=== PATIENT | female | born 2000 | race African-American/Black ===

== ENCOUNTER 2021-07-03 08:38 | Emergency (ER) | payer OTHER, SELFPAY ==
--- OUTSIDE RECORDS SUMMARY | 2021-07-03 08:40 | XMS REPORT | Continuity of Care Document ---
:2000 Author Organization [facility] t Address [address] [place] [address] Care Team Providers Name Role Phone Bonifacio CRUZ Primary Care Physician Unavailable Chris ESTEBAN Attending Clinician Unavailable Payers Payer Name Policy Type Policy Number Effective Date Expiration Date Yvonne JAMES [id number] 2016 HEALTH 00:00:00 Problems This patient has no known problems. Allergies, Adverse Reactions, Alerts Allergy Allergy Status Severity Reaction(s) Onset Inactive Treating Comm ents Source Name Type Date Date Clinician NO KNOWN Drug Active [facility]ER[facility] Medications This patient has no known medications. Procedures This patient has no known procedures. Encounters Start End Encounter Admission Attending Care Care Encounter Source Date/Time Date/Time Type Type Clinicians Facility Department ID 2021-07-04 2021-07-04 Outpatient R EULALIA [facility] [id number] Univers 14:30:00 14:30:00 DALILA [id number] kathleen o f [facility] 2021-07-04 2021-07-04 Outpatient R [facility] [id number] Univers 14:00:00 14:00:00 [facility] Results This patient has no known results.
[2021-07-03] MEDS ORDERED: ACETAMINOPHEN 500 MG TAB ONE (09:07)
[2021-07-03 09:14] LABS: Urine Blood 2+ (Negative); Urine Glucose Negative (Negative); Urine Protein 1+ (Negative); Urine Specific Gravity >=1.030 (1.005-1.030)
[2021-07-03 09:20] LABS: Urine Specific Gravity/Preg >1.030 (1.005-1.030)
--- NOTE | 2021-07-03 09:56 | RAD REPORT ---
EXAM DESCRIPTION: US - Transvaginal OB - 07/03/2021 9:40 am CLINICAL HISTORY: VAGINAL BLEEDING COMPARISON: No comparisons FINDINGS: A small slightly irregularly-shaped gestational sac is seen in the fundal portion of the e ndometrial cavity. Gestational sac measurements correspond to a 5 week 1 day age. There does appear t o be a small pole within this gestational sac. heart tones were obtained at 85 BPM. [place] -rump length measurement corresponds to a 6 week 0 day age. Uterus is normal in size. No hematoma or other intrauterine abnormality identifiable. No myometrial m ass. Both ovaries are identified. Normal blood flow seen at Doppler assessment. No ovarian or adnexal abno rmality. No blood or fluid in the cul de sac. IMPRESSION: Small, normally positioned gestational sac in the fundal portion of the endometrial cavi ty. Heart rate was recorded as 85 BPM. This was difficult to obtain but is believed to be rather th an maternal heart rate. Cervix is closed. No intrauterine mass or hematoma seen. No adnexal abnormalities.
[2021-07-03 10:02] LABS: Lymphocytes % 20.7 % (15.3-44.8); MPV 6.9 fL (7.6-11.3); RBC Red Blood Cell Count 4.77 M/uL (3.86-4.86)
[2021-07-03 10:27] LABS: BUN Blood Urea Nitrogen 8 mg/dL (7-18); Bicarbonate 23 mmol/L (21-32); Glucose Level 101 mg/dL (74-106); Potassium 3.7 mmol/L (3.5-5.1); Sodium Level 138 mmol/L (136-145)
[2021-07-03 10:41] LABS: HCG, Quantitative 876 mIU/mL (1-3)
--- NOTE | 2021-07-03 11:10 | EDPHYS ---
Physician Documentation [facility] Name: Shannan Garcia Age: 21 yrs Sex: Female : 2000 Arrival Date: 07/03/2021 Time: 08:41 Bed 19 Private MD: ED Physician Charlene Dominguez HPI: 07/03 08:55 This 21 yrs old Black Female presents to ER via Ambulatory with complaints of Vaginal cp Bleeding, + Preg <12wks. 08:55 The patient presents to the emergency department with vaginal bleeding, with clots. The cp estimated gestational age is 6 weeks. course: care: at a clinic, Ultrasound: the patient has not had an ultrasound. Previous pregnancies: the patient has never been . 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 - Social history:: Smoking status: Patient denies any tobacco usage or history of. ROS: 09:00 : Positive for vaginal bleeding, Negative for urinary symptoms. cp 09:00 Constitutional: Negative for body aches, chills, fever. cp 09:00 Respiratory: Negative for cough, shortness of breath, wheezing. 09:00 Abdomen/GI: Positive for abdominal pain, of the right lower quadrant and left lower quadrant, Negative for vomiting, diarrhea, constipation. 09:00 Back: Negative for radiated pain. 09:00 Neuro: Negative for altered mental status, headache, weakness. 09:00 All other systems are negative. cp Exam: 09:05 Constitutional: The patient appears in no acute distress, alert, awake, comfortable, cp non-toxic, well developed, well nourished. 09:05 Head/Face: Normocephalic, atraumatic. cp 09:05 Eyes: Periorbital structures: appear normal, Conjunctiva: normal, no exudate, no injection, Lids and lashes: appear normal, bilaterally. 09:05 ENT: External ear(s): are unremarkable, Nose: is normal, Mouth: Lips: moist, Oral mucosa: moist. 09:05 Chest/axilla: Inspection: normal. 09:05 Cardiovascular: Rate: tachycardic, Rhythm: regular. 09:05 Respiratory: the patient does not display signs of respiratory distress, Respirations: normal, no use of accessory muscles, no retractions, labored breathing, is not present, Breath sounds: are clear throughout, no decreased breath sounds, no stridor, no wheezing. 09:05 Abdomen/GI: Inspection: abdomen appears normal, Bowel sounds: active, all quadrants, Palpation: soft, in all quadrants, mild abdominal tenderness, in the right lower quadrant and left lower quadrant, rebound tenderness, is not appreciated, voluntary guarding, is not appreciated, involuntary guarding, is not appreciated. 09:05 Back: CVA tenderness, is absent. Vital Signs: 08:48 BP 137 / 81; Pulse 114; Resp 18; Temp 97.7; Pulse Ox 100% on R/A; Weight 88.45 kg; ph Height 4 ft. 11 in. (149.86 cm); Pain 6/10; 11:32 BP 126 / 79; Pulse 100; Resp 18 S; Pulse Ox 100% on R/A; jd3 08:48 Body Mass Index 39.38 (88.45 kg, 149.86 cm) ph MDM: 08:48 Patient medically screened. cp 09:00 Differential diagnosis: STD, ectopic , uti. cp 11:08 Data reviewed: vital signs, nurses notes, lab test result(s), radiologic studies, cp ultrasound. Counseling: I had a detailed discussion with the patient and/or guardian regarding: the historical points, exam findings, and any diagnostic results supporting the discharge/admit diagnosis, lab results, radiology results, the need for outpatient follow up, an OB/Gyne specialist, to return to the emergency department if symptoms worsen or persist or if there are any questions or concerns that arise at home. 07/03 08:55 Order name: Abo/rh Typing; Complete Time: 10:54 07/03 10:55 Interpretation: Reviewed. 07/03 08:55 Order name: Basic Metabolic Panel; Complete Time: 10:54 07/03 08:55 Order name: CBC with Diff; Complete Time: 10:54 07/03 10:54 Interpretation: Normal except: PLT 426; MPV 6.9. cp 07/03 08:55 Order name: Quantitative Hcg; Complete Time: 10:54 cp 07/03 10:55 Interpretation: HCGQ 876; Reviewed. cp 07/03 09:14 Order name: Urine Dipstick-Ancillary; Complete Time: 10:54 EDMS 07/03 09:15 Order name: Urine --Ancillary (enter results); Complete Time: 10:54 bd 07/03 08:55 Order name: IV Saline Lock; Complete Time: 09:59 cp 07/03 08:55 Order name: Labs collected and sent; Complete Time: 09:59 cp 07/03 08:55 Order name: NPO; Complete Time: 09:02 cp 07/03 08:55 Order name: Urine Dipstick-Ancillary (obtain specimen); Complete Time: 09:08 cp 07/03 08:55 Order name: Urine Test (obtain specimen); Complete Time: 09:08 cp 07/03 08:55 Order name: US Transvaginal Ob; Complete Time: 10:54 cp 07/03 10:56 Interpretation: Report reviewed. cp Administered Medications: 09:08 Drug: Tylenol 1000 mg Route: PO; jd3 10:00 Follow up: Response: No adverse reaction jd3 Disposition: 11:15 Chart complete. cp 07/04 04:37 Co-signature as Attending Physician, Charlene Dominguez MD I agree with the assessment and sp3 plan of care. Disposition Summary: 07/03/21 11:10 Discharge Ordered Location: Home cp Problem: new cp Symptoms: have improved cp Condition: Stable cp Diagnosis - Threatened cp Followup: cp - With: Private Physician - When: 1 week - Reason: Recheck today's complaints Discharge Instructions: - Discharge Summary Sheet cp - Care cp - Threatened Miscarriage cp - Vaginal Bleeding During , First Trimester cp Forms: - Medication Reconciliation Form cp - Thank You Letter cp - Antibiotic Education cp - Prescription Opioid Use cp Prescriptions: - 147-iron gluc-folic 13 mg iron- 1 mg Oral tablet - take 1 tablet by ORAL route once daily; 60 tablet; Refills: 0, Product cp Selection Permitted Signatures: Dispatcher [facility] Gloria Boyce RN RN ph Edenilson Gill PA PA Carloz Mariscal RN RN jd3 Charlene Dominguez, MD MD sp3
--- NOTE | 2021-07-03 11:10 | ER ---
Nurse's Notes [facility] Name: Shannan Garcia Age: 21 yrs Sex: Female : 2000 Arrival Date: 07/03/2021 Time: 08:41 Bed 19 Private MD: Diagnosis: Threatened Presentation: 07/03 08:48 Chief complaint: Patient states: Approx 5 weeks , began having spotting this morning which has progressively gotten heavier, small clots reported. Also reports lower abdominal cramping. Coronavirus screen: Vaccine status: Patient reports receiving the 2nd dose of the covid vaccine. Ebola Screen: No symptoms or risks identified at this time. Initial Sepsis Screen: Does the patient meet any 2 criteria? No. Patient's initial sepsis screen is negative. Does the patient have a suspected source of infection? No. Patient's initial sepsis screen is negative. Risk Assessment: Do you want to hurt yourself or someone else? Patient reports no desire to harm self or others. Onset of symptoms was July 03, 2021. 08:48 Method Of Arrival: Ambulatory 08:48 Acuity: ROMEO 3 ph TIN FLIPPER: 08:52 LMP 05/13/2021 ph 08:55 1, Full Term 0, 0, Living 0, LMP 05/17/2021 cp Historical: - Allergies: 08:52 No Known Allergies; ph - Home Meds: 08:52 None [Active]; ph - PMHx: 08:52 None; ph - PSHx: 08:52 None; ph - Immunization history:: Adult Immunizations up to date. - Social history:: Smoking status: Patient denies any tobacco usage or history of. Screenin:48 Abuse screen: Denies threats or abuse. Nutritional screening: No deficits noted. jd3 Tuberculosis screening: No symptoms or risk factors identified. Fall Risk Ambulatory Aid- None/Bed Rest/Nurse Assist (0 pts). Gait- Normal/Bed Rest/Wheelchair (0 pts) Mental Status- Oriented to own ability (0 pts). Total Zavala Fall Scale indicates No Risk (0-24 pts). Assessment: 08:46 General: Appears in no apparent distress. comfortable, Behavior is calm, cooperative, jd3 appropriate for age. Pain: Complains of pain in abdomen Quality of pain is described as pressure. Neuro: Level of Consciousness is awake, alert, obeys commands, Oriented to person, place, time, situation. Cardiovascular: Denies chest pain, Capillary refill < 3 seconds Patient's skin is warm and dry. Respiratory: Airway is patent Respiratory effort is even, unlabored, Respiratory pattern is regular, symmetrical, Denies cough, shortness of breath. GI: No signs and/or symptoms were reported involving the gastrointestinal system. : Reports vaginal bleeding that is spotty. EENT: No signs and/or symptoms were reported regarding the EENT system. Derm: Skin is intact, Skin is dry, Skin is normal, Skin temperature is warm. Musculoskeletal: Circulation, motion, and sensation intact. Range of motion: intact in all extremities. 09:58 Reassessment: Patient appears in no apparent distress at this time. No changes from jd3 previously documented assessment. Patient and/or family updated on plan of care and expected duration. Pain level reassessed. Patient is alert, oriented x 3, equal unlabored respirations, skin warm/dry/pink. 11:06 Reassessment: Patient appears in no apparent distress at this time. No changes from jd3 previously documented assessment. Patient and/or family updated on plan of care and expected duration. Pain level reassessed. Patient is alert, oriented x 3, equal unlabored respirations, skin warm/dry/pink. 11:32 Reassessment: Patient appears in no apparent distress at this time. Patient and/or jd3 family updated on plan of care and expected duration. Pain level reassessed. Patient is alert, oriented x 3, equal unlabored respirations, skin warm/dry/pink. Vital Signs: 08:48 BP 137 / 81; Pulse 114; Resp 18; Temp 97.7; Pulse Ox 100% on R/A; Weight 88.45 kg; ph Height 4 ft. 11 in. (149.86 cm); Pain 6/10; 11:32 BP 126 / 79; Pulse 100; Resp 18 S; Pulse Ox 100% on R/A; jd3 08:48 Body Mass Index 39.38 (88.45 kg, 149.86 cm) ph ED Course: 08:41 Patient arrived in ED. ds1 08:46 Edenilson Gill PA is PHCP. cp 08:46 Charlene Dominguez MD is Attending Physician. cp 08:46 Mejia, Carloz, RN is Primary Nurse. jd3 08:48 Patient has correct armband on for positive identification. Bed in low position. Call jd3 light in reach. Side rails up X 1. Adult w/ patient. Pulse ox on. NIBP on. 08:52 Triage completed. ph 08:52 Arm band placed on Patient placed in an exam room, on a stretcher. ph 09:12 Diet: Patient is NPO. mh5 09:13 Urine collected: clean catch specimen. 5 09:41 US Transvaginal Ob In Process Unspecified. EDMS 09:58 Inserted saline lock: 22 gauge in right antecubital area, using aseptic technique. jd3 Blood collected. 11:33 No provider procedures requiring assistance completed. IV discontinued, intact, jd3 bleeding controlled, No redness/swelling at site. Pressure dressing applied. Administered Medications: 09:08 Drug: Tylenol 1000 mg Route: PO; jd3 10:00 Follow up: Response: No adverse reaction jd3 Outcome: 11:10 Discharge ordered by MD. kit 11:33 Discharged to home ambulatory, with family. jd3 11:33 Condition: stable 11:33 Discharge instructions given to patient, family, Instructed on discharge instructions, follow up and referral plans. medication usage, Demonstrated understanding of instructions, follow-up care, medications, Prescriptions given X 1. 11:33 Patient left the ED. jd3 Signatures: Dispatcher [employer] [facility] Betsy Zambrano ds1 Gloria Gale, RN RN Edenilson Faria PA PA cp Martinez, Maria [facility] Carloz Mejia, RN RN j
[2021-07-03 11:42] VITALS: TEMP 97.7; O2SAT 100
[2021-07-03 11:44] VITALS: BP 126/79
== END 2021-07-03 11:33 | disposition home or self-care (01) ==
LOC: ER 08:38
DX: O20.0 Threatened abortion (principal); Z3A.01 Less than 8 weeks gestation of pregnancy
CPT/HCPCS: 36415; 76817; 80048; 81003; 81025; 84702; 85025; 86900; 86901; 99284

== ENCOUNTER 2021-12-10 10:49 | Emergency (ER) | payer OTHER ==
[2021-12-10] MEDS ORDERED: dexAMETHasone 10 MG/ML VIAL ONE ×2 (11:13→11:16)
--- NOTE | 2021-12-10 12:12 | ER ---
Nurse's Notes [facility] Name: Shannan Garcia Age: 21 yrs Sex: Female : 2000 Arrival Date: 12/10/2021 Time: 10:51 Bed DIS1 Private MD: Diagnosis: Streptococcal pharyngitis Presentation: 12/10 11:03 Chief complaint: Patient states: woke up with a sore throat and pain this morning. iw Coronavirus screen: Client presents with at least one sign or symptom that may indicate coronavirus-19. Ebola Screen: Patient negative for fever greater than or equal to 101.5 degrees Fahrenheit, and additional compatible Ebola Virus Disease symptoms Patient denies exposure to infectious person. Patient denies travel to an Ebola-affected area in the 21 days before illness onset. No symptoms or risks identified at this time. Initial Sepsis Screen: Does the patient meet any 2 criteria? No. Patient's initial sepsis screen is negative. Does the patient have a suspected source of infection? No. Patient's initial sepsis screen is negative. Risk Assessment: Do you want to hurt yourself or someone else? Patient reports no desire to harm self or others. Onset of symptoms was December 10, 2021. 11:03 Method Of Arrival: Ambulatory iw 11:03 Acuity: ROMEO 4 iw Historical: - Allergies: 11:04 No Known Allergies; iw - Home Meds: 11:04 None [Active]; iw - PMHx: 11:04 None; iw - Immunization history:: Adult Immunizations unknown. - Social history:: Smoking status: unknown. Screenin:37 Abuse screen: Denies threats or abuse. Denies injuries from another. Nutritional iw screening: No deficits noted. Tuberculosis screening: No symptoms or risk factors identified. Fall Risk None identified. Assessment: 11:36 General: Appears in no apparent distress. Behavior is calm, cooperative. Pain: iw Complains of pain in throat Neuro: Level of Consciousness is awake, alert, obeys commands, Oriented to person, place, time, situation, Moves all extremities. Full function Gait is. Respiratory: Airway is patent Respiratory effort is even, unlabored, Breath sounds are clear bilaterally. EENT: Throat has enlarged tonsils on left with gag reflex present. Vital Signs: 11:03 BP 130 / 77; Pulse 92; Resp 16; Temp 98.5; Pulse Ox 100% on R/A; iw ED Course: 10:51 Patient arrived in ED. as 10:54 [facility] amaury 10:54 Zelalem Ponce MD is Attending Physician. [facility] 11:03 Catherine Burkett, RN is Primary Nurse. iw 11:04 Triage completed. iw 11:04 Arm band placed on. iw 11:10 COVID swab sent to lab. Flu and/or RSV swab sent to lab. Strep swab sent to lab. em1 12:03 Patient has correct armband on for positive identification. iw 12:03 No provider procedures requiring assistance completed. Patient did not have IV access iw during this emergency room visit. Administered Medications: 11:14 Drug: Decadron (dexamethasone) 10 mg Route: IM; Site: left deltoid; iw 11:30 Follow up: Response: No adverse reaction iw Medication: 11:37 VIS not applicable for this client. iw Outcome: 12:11 Discharge ordered by . [facility] 12:20 Discharged to home ambulatory. iw 12:20 Condition: good 12:20 Discharge instructions given to patient, Instructed on discharge instructions, follow up and referral plans. medication usage, Demonstrated understanding of instructions, follow-up care, medications, Prescriptions given X 1. 12:21 Patient left the ED. iw Signatures: Bernard Hunt PA PA jmm Martinez, Amelia as Williams, Irene, RN RN Juan Carlos Johnson 1
--- NOTE | 2021-12-10 12:12 | EDPHYS ---
Physician Documentation [facility] Name: Shannan Garcia Age: 21 yrs Sex: Female : 2000 Arrival Date: 12/10/2021 Time: 10:51 Bed DIS1 Private MD: ED Physician Zelalem Ponce HPI: 12/10 12:09 This 21 yrs old Black Female presents to ER via Ambulatory with complaints of Sore jmm Throat, Swollen Glands. 12:09 The patient presents with sore throat. Onset: The symptoms/episode began/occurred jmm gradually. Modifying factors: The symptoms are alleviated by nothing, the symptoms are aggravated by nothing. Associated signs and symptoms: Pertinent positives: fever. This is a 21 year old female with no chronic medical conditions that presents to the ED with complaints of sore throat. Patient states having similar episode in the past with strep diagnosis. . Historical: - Allergies: 11:04 No Known Allergies; iw - Home Meds: 11:04 None [Active]; iw - PMHx: 11:04 None; iw - Immunization history:: Adult Immunizations unknown. - Social history:: Smoking status: unknown. ROS: 12:09 Constitutional: Positive for body aches, chills. jmm 12:09 ENT: Positive for sore throat. 12:09 All other systems are negative. 12:40 Constitutional: f kdr Exam: 12:09 Constitutional: This is a well developed, well nourished patient who is awake, alert, jmm and in no acute distress. Head/Face: atraumatic. Eyes: EOMI, no conjunctival erythema appreciated 12:09 Chest/axilla: Normal chest wall appearance and motion. Cardiovascular: Regular rate and rhythm. No edema appreciated Respiratory: Normal respirations, no respiratory distress appreciated Abdomen/GI: Non distended Back: Normal ROM Skin: General appearance color normal MS/ Extremity: Moves all extremities, no obvious deformities appreciated, no edema noted to the lower extremities Neuro: Awake and alert Psych: Behavior is normal, Mood is normal, Patient is cooperative and pleasant 12:09 ENT: Posterior pharynx: erythema, that is moderate. Vital Signs: 11:03 BP 130 / 77; Pulse 92; Resp 16; Temp 98.5; Pulse Ox 100% on R/A; iw MDM: 11:02 Patient medically screened. jmm 12:10 Data reviewed: vital signs, nurses notes. Counseling: I had a detailed discussion with [facility] the patient and/or guardian regarding: the historical points, exam findings, and any diagnostic results supporting the discharge/admit diagnosis, lab results, the need for outpatient follow up, to return to the emergency department if symptoms worsen or persist or if there are any questions or concerns that arise at home. ED course: PE is not consistent with ludwigs or river boat captain. Patient advised to follow up with pcp and otherwise given strict return precautions. patient understood and agrees with the plan of care. . 12/10 10:54 Order name: SARS-COV-2 RT PCR (Document "Date of Onset" if Symptomatic); Complete Time: [facility] 12:12/10 10:55 Order name: Strep; Complete Time: 12:09 [facility] 12/10 10:55 Order name: Influenza Screen (a \\T\\ B); Complete Time: 12:09 [facility] Administered Medications: 11:14 Drug: Decadron (dexamethasone) 10 mg Route: IM; Site: left deltoid; 11:30 Follow up: Response: No adverse reaction Disposition: 12:40 Co-signature as Attending Physician, Zelalem Ponce MD I agree with the assessment and kdr plan of care. Disposition Summary: 12/10/21 12:11 Discharge Ordered Location: Home [facility] Condition: Stable [facility] Diagnosis - Streptococcal pharyngitis [facility] Followup: [facility] - With: Private Physician - When: 2 - 3 days - Reason: Recheck today's complaints, Continuance of care, Re-evaluation by your physician Discharge Instructions: - Discharge Summary Sheet [facility] - Strep Throat, Adult [facility] Forms: - Medication Reconciliation Form [facility] - Thank You Letter [facility] - Antibiotic Education [facility] - Prescription Opioid Use [facility] - Work release form Prescriptions: - Amoxicillin 875 mg Oral Tablet - take 1 tablet by ORAL route every 12 hours for 10 days; 20 tablet; Refills: 0, [facility] Product Selection Permitted Signatures: Dispatcher [employer] Zelalem Young MD MD kdr Mickail, Joel, PA PA jmm Williams, Irene, BRIANDA RN iw
[2021-12-10 12:58] VITALS: BP 130/77; TEMP 98.5; O2SAT 100
== END 2021-12-10 12:21 | disposition home or self-care (01) ==
LOC: ER 10:49
DX: J02.0 Streptococcal pharyngitis (principal); Z20.822 Contact with and (suspected) exposure to COVID-19
CPT/HCPCS: 87081; 87804; 96372; 99283; J1100; U0003

== ENCOUNTER 2023-04-06 08:14 | Emergency (ER) | payer OTHER ==
--- OUTSIDE RECORDS SUMMARY | 2023-04-06 08:17 | XMS REPORT | Continuity of Care Document ---
:2000 Author Organization [facility] t Address [address] [facility] [address] [place] [address] Care Team Providers Name Role Phone KRISTI ESTEBAN Primary Care Physician Unavailable KRISTI ESTEBAN Attending Clinician Unavailable JAIMIE MEDRANO Attending Clinician Unavailable Trimester, [facility] Res-1st Attending Clinician Unavailable Jaimie Medrano MD Attending Clinician [facility] [phone] RUI CHRISTIE Attending Clinician Unavailable Rui Christie MD Attending [facility]ician [facility] Unavailable Aminta SANFORD Attending Clinician Unavailable Aminta Espitia Attending Clinician Doctor Unassigned, [place] Attending Clinician Unavailable Aminta SANFORD Admitting Clinician Unavailable Payers Payer Name Policy Type Policy Number Effective Date Expiration Date S ource [facility] [place] ST[facility] [id number] 2021 00:00:00 [place] [id number] 2021 00:00:00 MEDICAID PEND[place] PENDING 2021 00:00:00 [place] [facility] [id number] 2016 HEALTH 00:00:00 Problems Condition Condition Condition Status Onset Resolution Last Treating Co mments Source Name Details Category Date Date Treatment Clinician Date Supervisio Supervisio Disease Active U nivers n of n of 1-26 it[place] of [place] [facility] Vaginal Vaginal Disease Active Univers bleeding bleeding 1-26 ity of during during 00:00: [place] 00 [facility] Obesity in Obesity in Disease Active U nivers 6-05 ity of 00:00: [address] Allergies, Adverse Reactions, Alerts Allergy Allergy Status Severity Reaction(s) Onset Inactive Treating Comm ents Source Name Type Date Date Clinician NO KNOWN Drug Active Univers ALLERGIE Class ity of S [facility] Social History Social Habit Start Date Stop Date Quantity Comments Source ASSERTION 2021-05-30 University of 00:00:00 [facility] Exposure to Not sure [facility] SARS-CoV-2 [facility] (event) [place] Alcohol intake 2021-07-26 2021-07-26 Current University of 00:00:00 00:00:00 non-drinker of [facility] alcohol (finding) [place] Tobacco use and 2017-11-18 2017-11-18 Never used Universit y of exposure 00:00:00 00:00:00 [facility] Tobacco Comment 2017-11-18 2017-11-18 no longer smokes Uni versity of 00:00:00 00:00:00 [facility] History of 2015 2016-10-07 Cigarette Smoker Universi ty of tobacco use 00:00:00 00:00:00 [facility] Sex Assigned At [birth year] Universit y of 00:00:00 00:00:00 [facility] Smoking Status Start Date Stop Date Source Former smoker 2017-11-18 00:00:00 2017-11-18 00:00:00 Universi ty of [facility] Medications Ordered Filled Start Stop Current Ordering Indication Dosage Frequency Signature Comments Components Source Medication Medication Date Date Medication? Clinician (SIG) Name Name metroNIDAZO Yes [id number] 500mg Take 1 Univers LE 500 mg 2-08 tablet by ity o f tablet 00:00: mouth 2 [place] 00 (two) Medical times Branch daily. Yes Take by Univer s vit/iron - mouth. ity of fum/folic 06:58: [place] 02 Medical ( 1 Branch + 1 ORAL) Procedures This patient has no known procedures. Encounters Start End Encounter Admission Attending Care Care Encounter Source Date/Time Date/Time Type Type Clinicians Facility Department ID 2023-01-13 2023-01-13 Outpatient [facility] [id number] 10:54:13 10:54:13 [id number] Nathalia Paul 2023-01-08 2023-01-08 Outpatient [facility] [id number] 14:40:14 14:40:14 [id number] Nathalia [place] 2022-12-23 2022-12-23 Outpatient R AKINSIPE, [facility] [id number] Univers 14:15:00 14:15:00 KRISTI ity o nathalia [facility] 2021-08-01 2021-08-01 Outpatient R AKINSIPE, [facility] [id number] Univers 13:00:00 13:00:00 KRISTI ity o nathalia [facility] 2021-08-01 2021-08-01 Outpatient R AKINSIPE, [facility] [id number] Univers 13:00:00 13:00:00 KRISTI ity o [facility] 2021-08-01 2021-08-01 Outpatient R AKINSIPE, [facility] [id number] Univers 13:00:00 13:00:00 KRISTI wang o [facility] 2021-07-26 2021-07-26 Outpatient R MEDRANO, [facility] [id number] Univers 11:00:00 16:42:44 JAIMIE chinolilia [facility] 2021-07-26 2021-07-26 Routine Trimester, [facility] Res-1st UNIVERSIT [id number] Univers 11:00:00 16:42:44 Jaimie Medrano [facility] [id number] ity of Visit CLINICS [id number] Bhargavike bui [id number] [address] 2021-07-26 2021-07-26 Outpatient R MEDRANO, [facility] [id number] Univers 11:00:00 16:42:44 JAIMIE chinolilia [facility] 2021-07-17 2021-07-17 Telephone Margarita, [facility] [id number] Univers 00:00:00 00:00:00 Kristi C [employer] HEL[employer] [id number] ity of REGIONAL [id number] Bhargav as MATERNAL [phone] [facility] & CHILD [address] [place] [address] 2021-07-12 2021-07-12 Outpatient R CARTER [facility] [id number] Univers 09:30:00 10:03:31 RUI [facility] 2021-07-12 2021-07-12 Routine Trimester, [facility] Res-1st UNIVERSIT [id number] Univers 09:30:00 10:03:31 ChristieRui [facility] [id number] ity of Visit CLINICS [id number] [id number] [address] 2021-07-12 2021-07-12 Outpatient R CARTER [facility] [id number] Univers 09:30:00 10:03:31 [facility] 2021-07-10 2021-07-10 Telephone [facility] [id number] Univers 00:00:00 00:00:00 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 [id number] Univers 10:45:00 10:55:01 Visit Kristi Esteban [employer] [id number] 10 ity of REGIONAL [id number] Bhargav as MATERNAL [id number] [facility] & [address] 2021-07-09 2021-07-09 [facility] [id number] Univers 10:45:00 10:55:01 KRISTI wang o f [facility] 2021-07-09 2021-07-09 [facility] [id number] Univers 10:45:00 10:45:00 KRISTI wang o f [facility] 2021-07-09 2021-07-09 Telephone [facility] [id number] Univers 00:00:00 00:00:00 Kristi Perez [employer] 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 [id number] ity [facility] [id number] Bhargav as MATERNAL [id number] [facility] & [address] 2021-07-07 2021-07-07 Emergency X JUVENAL, K [facility] ERT [id number] Univers 16:39:00 18:58:00 ity [facility] 2021-07-07 2021-07-07 Emergency X JUVENAL, K [facility] ERT [id number] Univers 16:39:00 18:58:00 ity [facility] 2021-07-07 2021-07-07 Emergency Juvenal [facility] [id number] Univers 16:39:00 18:58:00 [facility] [id number] i ty [facility] [id number] [facility] [id number] [address] 2021-07-07 2021-07-07 Telephone [facility] [id number] Univers 00:00:00 00:00:00 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 [id number] ity [facility] [id number] Bhargav as MATERNAL [id number] [facility] & CHILD [address] [place] [address] 2021-07-06 2021-07-06 Outpatient R MARGARITA, [facility] [id number] Univers 10:30:00 10:41:04 KRISTI wang o [facility] 2021-07-06 2021-07-06 Outpatient R MARGARITA, [facility] [id number] Univers 10:30:00 10:41:04 KRISTI wang o f [facility] 2021-07-06 2021-07-06 Outpatient R MARGARITA, [facility] [id number] Univers 10:30:00 10:41:04 KRISTI maganay o f [facility] 2021-07-06 2021-07-06 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 [id number] Univers 10:30:00 10:41:04 Visit Kristi Esteban [employer] HEL[employer] [id number]. 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 [id number] ity of Visit REGIONAL [id number] Bhargav as MATERNAL [id number] [facility] & [address] 2021-07-04 2021-07-04 Outpatient R AKINSIPE, [facility] [id number] Univers 14:00:00 14:49:33 KRISTI ity o f [facility] 2021-07-04 2021-07-04 Outpatient R AKINSIPE, [facility] [id number] Univers 14:00:00 14:49:33 KRISTI ity o f [facility] 2021-07-04 2021-07-04 Outpatient R AKINSIPE, [facility] [id number] Univers 14:00:00 14:49:33 KRISTI ity o f [facility] 2021-07-04 2021-07-04 Outpatient R AKINSIPE, [facility] [id number] Univers 14:00:00 14:00:00 KRISTI ity o [facility] 2021-07-04 2021-07-04 Jennifer VANEGAS [id number] Univers 00:00:00 00:00:00 Only Unassigned, GORAN [id number] ity of [place] [facility] [id number] Bhargav as [phone] [facility] [address] Branch Results This patient has no known results.
[2023-04-06] MEDS ORDERED: ONDANSETRON 4 MG/2 ML VIAL ONE (09:10)
[2023-04-06] MEDS ORDERED: NA CHLORIDE 0.9% 1,000 ML ONE (09:10)
[2023-04-06 09:20] LABS: Absolute Lymphocytes (CBC) 1.3 K/uL (0.7-4.9); Hematocrit 39.7 % (36.0-45.0); MPV 7.3 fL (7.6-11.3); Platelets 342 thou/uL (152-406); RBC Red Blood Cell Count 4.56 M/uL (3.86-4.86)
[2023-04-06 09:34] LABS: Albumin 3.8 g/dL (3.4-5.0); Bilirubin Total 0.2 mg/dL (0.2-1.0); Potassium 3.8 mEq/L (3.5-5.1); Protein, Total 8.5 g/dL (6.4-8.2)
[2023-04-06 09:39] LABS: Specific Gravity 1.022 (1.005-1.030)
[2023-04-06 09:41] LABS: Specific Gravity 1.022 (1.005-1.030); Urine Bacteria None Seen /HPF (<20); Urine Bilirubin NEGATIVE (Negative); Urine Blood 1+ (Negative); Urine Clarity Clear (Clear); Urine Color Light-Yellow (Yellow); Urine Glucose NEGATIVE (Negative); Urine Mucus Slight /HPF (None Seen); Urine Protein NEGATIVE (Negative); Urine Urobilinogen Normal (Normal); Urine pH 7.5 (5.0-7.0)
--- NOTE | 2023-04-06 12:25 | ER ---
Nurse's Notes [facility] Name: Shannan Garcia Age: 23 yrs Sex: Female : 2000 Arrival Date: 04/06/2023 Time: 08:14 Bed 2 Private MD: Diagnosis: Lower abdominal pain, unspecified Presentation: 04/06 08:30 Chief complaint: Lower abdominal pain and nausea x 2 hours. Coronavirus screen: At this hb time, the client does not indicate any symptoms associated with coronavirus-19. Ebola Screen: No symptoms or risks identified at this time. Initial Sepsis Screen: Does the patient meet any 2 criteria? No. Patient's initial sepsis screen is negative. Does the patient have a suspected source of infection? No. Patient's initial sepsis screen is negative. Risk Assessment: Do you want to hurt yourself or someone else? Patient reports no desire to harm self or others. Onset of symptoms was April 06, 2023. 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 - Social history:: Smoking status: Patient denies any tobacco usage or history of. Screenin:18 [facility] ED Fall Risk Assessment (Adult) History of falling in the last 3 months, aa5 including since admission No falls in past 3 months (0 pts) Confusion or Disorientation No (0 pts) Intoxicated or Sedated No (0 pts) Impaired Gait No (0 pts) Mobility Assist Device Used No (0 pt) Altered Elimination No (0 pt) Score/Fall Risk Level 0 - 2 = Low Risk Oriented to surroundings, Maintained a safe environment, Educated pt \\T\\ family on fall prevention, incl call for assistance when getting out of bed. Abuse screen: Denies threats or abuse. Nutritional screening: No deficits noted. Tuberculosis screening: No symptoms or risk factors identified. Assessment: 09:05 General: Appears comfortable, Behavior is calm, cooperative. Pain: Complains of pain in aa5 right lower quadrant and left lower quadrant Pain currently is 7 out of 10 on a pain scale. Quality of pain is described as crampy, Pain began 2 hours ago. Is continuous. Neuro: Level of Consciousness is awake, alert, obeys commands, Oriented to person, place, time, situation. Cardiovascular: Heart tones S1 S2 present Rhythm is regular. Respiratory: Airway is patent Respiratory effort is even, unlabored, Respiratory pattern is regular, symmetrical. GI: Abdomen is round non-distended, Bowel sounds present X 4 quads. Abd is soft and non tender X 4 quads. Reports lower abdominal pain, nausea, Patient currently denies diarrhea, vomiting. : No signs and/or symptoms were reported regarding the genitourinary system. Denies burning with urination, inability to void. EENT: No signs and/or symptoms were reported regarding the EENT system. Derm: Skin is dry, Skin is normal, Skin temperature is warm. Musculoskeletal: Range of motion: intact in all extremities. 09:24 Reassessment: Pt now ambulatory to restroom . aa5 09:30 Reassessment: Urine sent to lab . aa5 10:20 Reassessment: Patient and/or family updated on plan of care and expected duration. Pain rs5 level reassessed. Patient is alert, oriented x 3, equal unlabored respirations, skin warm/dry/pink. Patient denies pain at this time. Patient states feeling better. 11:15 Reassessment: No changes from previously documented assessment. rs5 12:00 GI: Abdomen is round non-distended, Bowel sounds present X 4 quads. Abd is soft and non rs5 tender X 4 quads. Patient currently denies abdominal pain, nausea, vomiting. 12:00 Reassessment: Pt states "I feel better now and I want to leave", provider notified. rs5 Vital Signs: 08:30 Pulse 96; Resp 16; Temp 98.5(O); Pulse Ox 99% on R/A; Weight 79.83 kg; Height 4 ft. 11 hb in. ; Pain 7/10; 09:12 BP 118 / 86; Pulse 79; Resp 16 S; Pulse Ox 100% on R/A; aa5 10:20 BP 120 / 81; Pulse 74; Resp 17; Pulse Ox 99% on R/A; rs5 11:40 BP 125 / 78; Pulse 77; Resp 18; Temp 98.4(O); Pulse Ox 99% on R/A; rs5 08:30 Body Mass Index 35.55 (79.83 kg, 149.86 cm) hb 08:30 Pain Scale: Adult hb ED Course: 08:18 Patient arrived in ED. mg5 08:19 Sapphire Moctezuma [facility] sb4 08:19 Rudolph Blake MD is Attending Physician. sb4 08:31 Triage completed. hb 08:37 Blossom Regalado, RN is Primary Nurse. aa5 09:05 Patient has correct armband on for positive identification. Bed in low position. Call aa5 light in reach. Side rails up X 1. Adult w/ patient. Pulse ox on. NIBP on. 09:11 Initial lab(s) drawn, by me, sent to lab. Inserted saline lock: 22 gauge in right aa5 wrist, using aseptic technique. Blood collected. 10:03 CT Abd/Pelvis - IV Contrast Only In Process Unspecified. EDMS 10:49 Inserted saline lock: 20 gauge in left forearm, using aseptic technique. ,using aseptic nj1 technique. Ultrasound guided. Catheter tip well visualized within vasculature during placement. 12:22 No provider procedures requiring assistance completed. IV discontinued, intact, rs5 bleeding controlled, No redness/swelling at site. Pressure dressing applied. Administered Medications: 09:12 Drug: NS 0.9% IV 1000 ml IV at 1 bolus Per protocol; 1000 mL bolus Route: IV; Rate: 1 aa5 bolus; Site: right wrist; 09:30 Follow up: Response: No adverse reaction rs5 09:12 Drug: Ondansetron IVP 4 mg IVP once; over 2 minutes Route: IVP; Site: right wrist; aa5 09:32 Follow up: Response: No adverse reaction; Nausea is decreased rs5 Medication: 11:51 VIS not applicable for this client. aa5 Outcome: 12:22 Discharged to home ambulatory, with family, rs5 12:22 Condition: stable 12:22 Discharge instructions given to patient, family, 12:24 Discharge ordered by MD. sb4 12:34 Patient left the ED. rs5 Signatures: Dispatcher [employer] EDAR Blossom Regalado RN RN aa5 Nallely Franklin RN RN Sapphire Moctezuma PA-C PA-C sb4 Garcia Coleman RN RN rs5 Alena Graham RN RN nj1 Sayra Spaulding mg5 Corrections: (The following items were deleted from the chart) 08:32 08:30 Pulse 96bpm; Resp 16bpm; Pulse Ox 99% RA; Pain 12/16, Adult; hb hb 13:08 12:30 Response: No adverse reaction; Nausea is decreased rs5 rs5
--- NOTE | 2023-04-06 12:25 | EDPHYS ---
Physician Documentation [facility] Name: Shannan Garcia Age: 23 yrs Sex: Female : 2000 Arrival Date: 04/06/2023 Time: 08:14 Bed 2 Private MD: ED Physician Rudolph Blake HPI: 04/06 08:35 This 23 yrs old Black Female presents to ER via Ambulatory with complaints of Abdominal sb4 Pain. 08:35 The patient presents with abdominal pain in the lower abdomen. Onset: The sb4 symptoms/episode began/occurred this morning. The symptoms radiate to back. Associated signs and symptoms: Pertinent positives: nausea. The symptoms are described as constant, crampy. Modifying factors: The symptoms are alleviated by nothing, the symptoms are aggravated by nothing. Severity of pain: in the emergency department the pain is unchanged is a 7 / 10. The patient has not experienced similar symptoms in the past. The patient has not recently seen a physician. period is late, no vag bleeding, no urinary symptoms. 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 - Social history:: Smoking status: Patient denies any tobacco usage or history of. ROS: 08:35 Constitutional: Negative for fever, chills, and weight loss, sb4 08:35 Abdomen/GI: Positive for abdominal pain, nausea, 08:35 : Positive for missed period, 08:35 All other systems are negative, Exam: 08:35 Constitutional: This is a well developed, well nourished patient who is awake, alert, sb4 and in no acute distress. Head/Face: Normocephalic, atraumatic. Eyes: Extra-ocular motions intact. Periorbital areas with no swelling, redness, or edema. ENT: Mucous membranes moist. Cardiovascular: Regular rate and rhythm with a normal S1 and S2. Respiratory: Lungs have equal breath sounds bilaterally, clear to auscultation and percussion. No rales, rhonchi or wheezes noted. No increased work of breathing, no retractions or nasal flaring. Abdomen/GI: Soft, non-tender, no distension. Skin: Warm, dry with normal turgor. Normal color with no rashes, no lesions, and no evidence of cellulitis. MS/ Extremity: Pulses equal, no cyanosis. Neurovascular intact. Full, normal range of motion. Neuro: Awake and alert, GCS 15, oriented to person, place, time, and situation. Motor strength 5/5 in all extremities. Sensory grossly intact. Vital Signs: 08:30 Pulse 96; Resp 16; Temp 98.5(O); Pulse Ox 99% on R/A; Weight 79.83 kg; Height 4 ft. 11 hb in. ; Pain 7/10; 09:12 BP 118 / 86; Pulse 79; Resp 16 S; Pulse Ox 100% on R/A; aa5 10:20 BP 120 / 81; Pulse 74; Resp 17; Pulse Ox 99% on R/A; rs5 11:40 BP 125 / 78; Pulse 77; Resp 18; Temp 98.4(O); Pulse Ox 99% on R/A; rs5 08:30 Body Mass Index 35.55 (79.83 kg, 149.86 cm) hb 08:30 Pain Scale: Adult hb MDM: 08:33 Patient medically screened. sb4 08:35 Differential diagnosis: Dysmenorrhea, Ectopic , Menorrhagia, non-specific abd sb4 pain, Pyelonephritis, urinary tract infection. 12:26 Data reviewed: vital signs, nurses notes, lab test result(s), radiologic studies, and sb4 as a result, I will discharge patient. Counseling: I had a detailed discussion with the patient and/or guardian regarding the historical points, exam findings, and any diagnostic results supporting the discharge/admit diagnosis, lab results, radiology results, to return to the emergency department if symptoms worsen or persist or if there are any questions or concerns that arise at home. 04/06 08:33 Order name: CBC with Diff; Complete Time: 09:23 sb4 04/06 08:33 Order name: CMP; Complete Time: 09:35 sb4 04/06 08:33 Order name: Lipase; Complete Time: 09:35 sb4 04/06 08:33 Order name: Test, Urine; Complete Time: 09:43 sb4 04/06 08:33 Order name: UAM; Complete Time: 09:43 sb4 04/06 09:43 Order name: CT Abd/Pelvis - IV Contrast Only sb4 04/06 08:33 Order name: IV Saline Lock; Complete Time: 09:16 sb4 04/06 08:33 Order name: Labs collected and sent; Complete Time: 09:16 sb4 Administered Medications: 09:12 Drug: NS 0.9% IV 1000 ml IV at 1 bolus Per protocol; 1000 mL bolus Route: IV; Rate: 1 aa5 bolus; Site: right wrist; 09:30 Follow up: Response: No adverse reaction rs5 09:12 Drug: Ondansetron IVP 4 mg IVP once; over 2 minutes Route: IVP; Site: right wrist; aa5 09:32 Follow up: Response: No adverse reaction; Nausea is decreased rs5 Disposition Summary: 04/06/23 12:24 Discharge Ordered Notes: Location: Home sb4 Problem: new sb4 Symptoms: have improved sb4 Condition: Stable sb4 Diagnosis - Lower abdominal pain, unspecified sb4 Followup: sb4 - With: Emergency Department - When: As needed - Reason: Trouble breathing, Worsening of condition Discharge Instructions: - Discharge Summary Sheet sb4 - Abdominal Pain, Adult, [id number]-cq-Vyrr sb4 Forms: - Medication Reconciliation Form sb4 - Thank You Letter sb4 - Antibiotic Education sb4 - Prescription Opioid Use sb4 - Patient Portal Instructions sb4 - Leadership Thank You Letter sb4 Addendum: 04/07/2023 14:13 I was immediately available for consultation during this patient's visit. I did not e c2 personally see the patient or guide the patient's care.. Signatures: Dispatcher [employer] Blossom Ramsey RN RN aa5 Nallely Franklin RN RN hb Brown, Sophia, PA-C PA-C sb4 Rudolph Blake MD MD ec2 Garcia Coleman RN rs5
--- NOTE | 2023-04-06 12:49 | RAD REPORT ---
EXAM DESCRIPTION: CT - Abdomen Pelvis W Contrast - 04/06/2023 11:53 am CLINICAL HISTORY: Abdominal pain COMPARISON: none. TECHNIQUE: Computed axial tomography of the abdomen pelvis was obtained. 100 cc Isovue-300 was admin istered intravenously. Oral contrast was not requested which limits evaluation of bowel and appendix All CT scans are performed using dose optimization technique as appropriate and may include automated exposure control or mA/KV adjustment according to patient size. FINDINGS: The liver, spleen, pancreas, adrenal and kidneys appear unremarkable. There is no evidence of diverticulitis. 15 millimeter irregularly shaped right ovarian follicle Small umbilical hernia Borderline gallbladder wall thickening IMPRESSION: Borderline gallbladder wall thickening. Ultrasound may be helpful for further evaluation 15 millimeter irregularly shaped right ovarian follicle may have recently ruptured. No significant fr ee fluid
[2023-04-06 13:02] VITALS: TEMP 98.5
[2023-04-06 13:03] VITALS: BP 118/86; O2SAT 100
== END 2023-04-06 12:34 | disposition home or self-care (01) ==
LOC: ER 08:14
DX: R10.30 Lower abdominal pain, unspecified (principal)
CPT/HCPCS: 85025; 81001; 36415; 81025; 83690; 80053; 74177; 96374; 99284; Q9967; J2405; J7030